=== PATIENT | female | born 1970 | race Caucasian/White ===

== ENCOUNTER → 2017-01-20 | Outpatient (CLI) | payer OTHER ==
--- NOTE | 2017-01-20 09:57 | Diagnostic Imaging Report ---
EXAMINATION: Ultrasound of the liver. INDICATION: Right upper quadrant pain. FINDINGS: The visualized portions of the pancreas appear unremarkable. The liver is slightly heterogenous with no focal lesion demonstrated. Hepatopetal flow in the portal vein is seen. The gallbladder has been removed. The CBD is 7 mm in caliber. The right kidney is 12 cm in length with no hydronephrosis or focal lesion. No fluid collection in the upper right abdomen is seen. IMPRESSION: No definite abnormality. Dictated by: Dictated on workstation # [id number]
== END ==
LOC: RAD 08:01
PROVIDERS: ATTEND Family Medicine
DX: R10.11 Right upper quadrant pain (principal)
CPT/HCPCS: 76705

== ENCOUNTER 2017-07-14 05:34 | Outpatient (CLI) | payer OTHER ==
[~2017-07-14] VITALS: Ht 172.7 cm; Wt 108.9 kg
[2017-07-14] MEDS ORDERED: PANT40TA2 PO (12:57)
== END 2017-07-14 12:59 ==
LOC: PREOP 05:34
PROVIDERS: ATTEND Surgery
DX: Z01.818 Encounter for other preprocedural examination (principal); R13.10 Dysphagia, unspecified

== ENCOUNTER 2017-07-21 08:26 | Day surgery (SDC) | payer OTHER ==
[~2017-07-21] VITALS: Ht 172.7 cm; Wt 108.9 kg
[~2017-07-21 08:26] MED LIST: PANT40TA2 PO
--- OUTSIDE RECORDS SUMMARY | 2017-07-21 08:30 | XMS REPORT | Continuity of Care Document ---
Author Author [facility] Organization [facility] Address Unknown Phone Unavailable Allergies Medications Problems Date Dx Coded Attending Type Code Diagnosis Diagnosed By 08/01/2014 ALEKSANDRA BOX Ot V76.12 11/15/2014 NEAL DAMON DO S Ot 278.00 11/15/2014 NEAL DAMON DO S Ot 626.9 07/23/2015 MIKY PATINO DO S Ot Z12.31 07/24/2015 MIKY PATINO DO S Ot Z12.31 08/01/2015 MIKY PATINO DO S Ot Z12.31 08/12/2015 MIKY PATINO DO S Ot R92.8 07/26/2016 ARISTEO CURRIE CONFERENCE SERVICES DIRECTOR Ot Z12.31 ENCNTR SCREEN MAMMOGRAM FOR MALIGNANT NE 07/26/2016 ARISTEO CURRIE APRN Ot Z12.31 ENCNTR SCREEN MAMMOGRAM FOR MALIGNANT NE 01/20/2017 MIKY PATINO DO S Ot R10.11 RIGHT UPPER QUADRANT PAIN 02/16/2017 MIKY PATINO DO S Ot R10.11 RIGHT UPPER QUADRANT PAIN Procedures Results Encounters ACCT No. Visit Date/Time Discharge Status Pt. Type Provider Facility Loc./Unit Complaint [id number] 07/14/2017 05:34:00 2016 23:59:59 CLS Outpatient JESSICA ARAMBULA, ALIX Peter [facility] PREOP EGD [id number] 01/20/2017 08:01:00 2016 23:59:59 CLS Outpatient MIKY PATINO DO [facility] RAD RUQ PAIN [id number] 07/23/2016 12:35:00 2015 23:59:59 CLS Outpatient ARISTEO CURRIE APRN [facility] RAD SCREENING [id number] 07/23/2015 13:27:00 2014 23:59:59 CLS Outpatient SUKUMAR NO MIKY S [facility] RAD [id number] 07/18/2015 14:36:00 2014 23:59:59 CLS Outpatient SUKUMAR NO MIKY S [facility] RAD [id number] 11/01/2014 13:35:00 2014 23:59:59 CLS Outpatient NELSON NO NEAL S [facility] RAD [id number] 07/12/2014 13:39:00 2013 23:59:59 CLS Outpatient ALEKSANDRA BOX [facility] RAD [id number] 05/04/2013 09:25:00 2012 23:59:59 CLS Outpatient [id number] 07/21/2017 09:30:00 PEN Preadxiao LOPEZ MD, ALIX Peter [facility] ENDO EPIGASTRIC PAIN
[2017-07-21] MEDS ORDERED: NS IV 500 ML 500 ML ONE (08:31)
[2017-07-21] MEDS ORDERED: HURRICAINE EXT TUBE (BENZOCAINE) XX PRN (08:45)
[2017-07-21 08:50] VITALS: BP 123/80
[2017-07-21] MEDS ORDERED: NS IV 500 ML 500 ML IV PRN (08:55)
[2017-07-21] MEDS ORDERED: MIDAZOLAM 2 MG/2 ML (VERSED) VIAL ONE ×4 (10:04→10:05)
[2017-07-21] MEDS ORDERED: fentaNYL INJECTION 100 MCG/2 ML AMP ONE (10:04)
[2017-07-21] MEDS ORDERED: HURRICAINE EXT TUBE (BENZOCAINE) ONE (10:05)
[2017-07-21] MEDS: fentaNYL INJECTION 100 MCG/2 ML AMP IVP PRN (10:49)
[2017-07-21] MEDS: MIDAZOLAM 2 MG/2 ML (VERSED) VIAL IVP PRN ×2 (10:50→10:58)
--- NOTE | 2017-07-21 10:50 | History & Physicial ---
History of Present Illness History of Present Illness Reason for visit/HPI to undergo an upper endoscopy to investigate 6 months history of epigastric pain. Previous cholecystectomy to address gallstones. Date of Admission Date Seen by Provider: Jul 21, 2017 Time Seen by Provider: 10:48 I consulted on this patient on 07/21/17 10:47 Attending Physician Alix Merida MD Admitting Physician Katrina Willett DO Consult Allergies and Home Medications Allergies Coded Allergies: Penicillins (Verified Allergy, Unknown, 07/14/17) Sulfa (Sulfonamide Antibiotics) (Verified Allergy, Unknown, 07/14/17) cefaclor (Verified Allergy, Unknown, 07/14/17) cephalexin (Verified Allergy, Unknown, 07/14/17) latex (Verified Allergy, Unknown, 07/14/17) Home Medications Pantoprazole Sodium 40 Mg Tablet.dr, 40 MG PO DAILY, (Reported) Past Cjjebbu-Ppsntj-Hkyvcg Hx Patient Social History Marrital Status: Employed/Student: employed Alcohol Use: Denies Use Recreational Drug Use: No Smoking Status: Never a Smoker Recent Foreign Travel: No Contact w/other who traveled: No Recent Hopitalizations: No Recent Infectious Disease Expo: No Seasonal Allergies Seasonal Allergies: No Surgeries Yes Gallbladder, Tubal Ligation Cardiovascular No Neurological No Reproductive System : No Genitourinary No Musculoskeletal No Endocrine History of Endocrine Disorders: No HEENT History of HEENT Disorders: No Cancer No Psychosocial History of Psychiatric Problem: No Constitutional: no symptoms reported EENTM: no symptoms reported Respiratory: no symptoms reported Cardiovascular: no symptoms reported Gastrointestinal: see HPI Genitourinary: no symptoms reported Musculoskeletal: no symptoms reported Skin: no symptoms reported Psychiatric/Neurological: No Symptoms Reported Physical Exam Vital Signs Vital Sign - Last 12Hours 07/21/17 08:50 Temp 98.4 Pulse 76 Resp 16 B/P (MAP) 123/80 Pulse Ox 97 O2 Delivery Room Air Capillary Refill : General Appearance: No Apparent Distress HEENT: Normal ENT Inspection Neck: Normal Inspection Respiratory: Lungs Clear Cardiovascular: Regular Rate, Rhythm Gastrointestinal: Non Tender, Soft Back: Normal Inspection Extremity: Normal Inspection Skin: Warm/Dry Assessment/Plan Assessment and Plan lady with epigastric pain. For upper endoscopy Problems: ALIX MERIDA MD Jul 21, 2017 10:50 am
--- NOTE | 2017-07-21 10:51 | Conscious Sedation/ASA ---
Conscious Sedation Pre-Proced Time Reviewed: 10:51 ASA Class: 2 Airway Mallampati Classification: ([place] appropriate class) I. II. III, IV Lungs Heart ASA score ASA 1: a normal healthy patient ASA 2: a patient with a mild systemic disease (mid diabetes, controlled hypertension, obesity ASA 3: a patient with a severe systemic disease that limits activity (angina , COPD, prior Myocardial infarction) ASA 4: a patient with an incapacitating disease that is a constant threat to life (CHF, renal failure) ASA 5: a moribund patient not expected to survive 24 hrs. (ruptured aneurysm) ASA 6: a declared brain patient whose organs are being harvested. For emergent operations, add the letter E after the classification Grade 1 Sedation Plan: Discussed options with patient/fam Note The patient is an appropriate candidate to undergo the planned procedure, sedation, and anesthesia. The patient immediately re-assessed prior to indication. ALIX LOPEZ MD Jul 21, 2017 10:51 am
--- NOTE | 2017-07-21 11:09 | Endo Procedure Record ---
Endo Procedure Report Date of Procedure Jul 21, 2017 Surgeon (s) ALIX LOPEZ MD Post Procedure/Op Diagnosis hiatal hernia with grade 2 esophagitis Multiple shallow antral erosions Procedure Performed EGD with antral biopsy for H. pylori Description of Procedure Anesthesia Type: Conscious Sedation Specimen(s) collected/removed antral mucosa for H. pylori Description of the Procedure Indication for procedure: This lady came in for an upper endoscopy to evaluate epigastric pain over the past 6 months. Informed consent was obtained after reviewing the procedure in detail. Description of the procedure: She was placed in left lateral decubitus position and her vital signs were monitored. Conscious sedation was achieved using Versed and fentanyl. The flexible gastroscope was introduced down the esophagus , past the stomach, into the proximal duodenum. Findings: Esophagus: A short hiatal hernia with grade 2 esophagitis. Stomach: A few, shallow erosions at the antrum. Biopsy for H. pylori was obtained Duodenum: Normal She tolerated the procedure well and was taken back to the nursing area in a stable condition. Impression: Epigastric pain. Grade 2 esophagitis and antral erosions. Helicobacter status pending. Copies To: MIKY PATINO XAVIER M MD Jul 21, 2017 11:09 am
--- NOTE | 2017-07-21 11:12 | Discharge Inst-Simple/Standard ---
Discharge Inst-Standard Discharge Medications New, Converted or Re-Newed RX: Other Patient Instructions/Follow Up Plan of Care/Instructions/FU: to increase Protonix to twice a day. Follow-up with her primary physician. To avoid nonsteroidals Activity as Tolerated: Yes Discharge Diet: No Restrictions ALIX LOPEZ MD Jul 21, 2017 11:12 am
[2017-07-21 11:35] VITALS: BP 107/62
[2017-07-21 12:05] VITALS: BP 119/76
[2017-07-21 12:10] VITALS: BP 119/76
== END 2017-07-21 12:10 | disposition home or self-care (01) ==
LOC: ENDO 08:26
PROVIDERS: ATTEND Surgery
DX: K20.9 Esophagitis, unspecified (principal); K44.9 Diaphragmatic hernia without obstruction or gangrene; K25.9 Gastric ulcer, unspecified as acute or chronic, without hemorrhage or perforation

== ENCOUNTER → 2017-11-25 | Outpatient (CLI) | payer OTHER ==
--- NOTE | 2017-11-25 16:20 | Diagnostic Imaging Report ---
INDICATION: Routine screening. COMPARISON: Prior study from 07/23/2016 and 07/18/2015. EXAMINATION: Bilateral digital screening mammogram with CAD. The current study was also evaluated with a Computer Aided Detection (CAD) system. FINDINGS: Both breasts are primarily involutional. The parenchymal pattern is stable. No dominant mass or malignant appearing microcalcifications are seen. There are benign calcifications, bilaterally. Axillae are unremarkable. IMPRESSION: No mammographic features suspicious for malignancy are identified. ACR BI-RADS Category 2: Benign findings. Result letter will be mailed to the patient. Note: At least 10% of breast cancer is not imaged by mammography. Dictated on workstation # [id number]
== END ==
LOC: RAD 14:00
PROVIDERS: ATTEND Family Medicine
DX: Z12.31 Encounter for screening mammogram for malignant neoplasm of breast (principal)
CPT/HCPCS: 77067

== ENCOUNTER → 2019-02-16 | Outpatient (CLI) | payer OTHER ==
--- NOTE | 2019-02-19 10:17 | Diagnostic Imaging Report ---
INDICATION: Routine screening. Comparison is made with prior mammogram from 11/25/2017 and 07/23/2016. 2-D and 3-D bilateral screening mammography was performed with a Computer Aided Detection (CAD) system. FINDINGS: Scattered fibroglandular densities are identified bilaterally. Scattered benign-appearing calcifications are identified bilaterally. Small circumscribed ovoid density is identified in the central and slightly lateral left breast approximately 6-7 cm from the nipple. This may represent a small cyst. This is in approximately 3 o'clock location. No other masses are seen. No malignant appearing microcalcifications are identified. IMPRESSION: Circumscribed ovoid density lateral left breast mid depth. Further evaluation with additional views and ultrasound is recommended. ACR BI-RADS Category 0: Incomplete. (Needs additional imaging evaluation). Result letter will be mailed to the patient. Note: At least 10% of breast cancer is not imaged by mammography. Dictated by: Dictated on workstation # [id number]
== END ==
LOC: RAD 14:41
PROVIDERS: ATTEND Family Medicine
DX: Z12.31 Encounter for screening mammogram for malignant neoplasm of breast (principal)
CPT/HCPCS: 77067

== ENCOUNTER → 2019-02-23 | Outpatient (CLI) | payer OTHER ==
--- NOTE | 2019-02-23 17:35 | Diagnostic Imaging Report ---
INDICATION: Left breast density. Patient presents for additional views. COMPARISON: Correlation is made with recent screening study from 02/16/19. EXAMINATION: Unilateral left 2D and 3D diagnostic mammography was performed including spot compression CC and ML as well as conventional 90 degree lateral views. FINDINGS: Additional views confirm presence of a fairly well circumscribed ovoid nodular density in the lower outer left breast, approximately 6 cm from the nipple. Further evaluation with ultrasound is recommended. No suspicious microcalcifications are seen. IMPRESSION: Persistent circumscribed density lower outer left breast at mid depth. Further evaluation with ultrasound is recommended and will be performed today. ACR BI-RADS Category 0: Incomplete. (Needs additional imaging evaluation). Result letter will be mailed to the patient. Note: At least 10% of breast cancer is not imaged by mammography. Dictated by: Dictated on workstation # [id number]
--- NOTE | 2019-02-23 17:41 | Diagnostic Imaging Report ---
INDICATION: Left breast density. Patient presents for further evaluation. COMPARISON: Correlation is made with diagnostic mammogram from earlier the same day and screening mammogram from 02/16/2019. EXAMINATION: Sonographic interrogation of the outer left breast was performed. FINDINGS: There is a tiny cyst at the 3:30 location of the left breast, 3 cm from the nipple. This demonstrates posterior acoustic enhancement. No internal vascularity is seen. This likely accounts for the density noted mammographically. IMPRESSION: Tiny cyst at the 3:30 location of the left breast corresponding with the mammographic abnormality. The patient may return to routine annual screening mammography. ACR BI-RADS Category 2: Benign findings. Result letter will be mailed to the patient. Note: At least 10% of breast cancer is not imaged by mammography. Dictated by: Dictated on workstation # [id number]
== END ==
LOC: RAD 13:14
PROVIDERS: ATTEND Family Medicine
DX: R92.2 Inconclusive mammogram (principal)
CPT/HCPCS: 76642

== ENCOUNTER 2019-09-24 05:33 | Outpatient (CLI) | payer OTHER ==
[~2019-09-24] VITALS: Ht 172 cm; Wt 118.0 kg
== END 2019-09-24 12:43 | disposition home or self-care (01) ==
LOC: PREOP 05:33
PROVIDERS: ATTEND Surgery
DX: Z01.818 Encounter for other preprocedural examination (principal)

== ENCOUNTER 2019-09-28 09:52 | Day surgery (SDC) | payer OTHER ==
--- NOTE | 2019-09-10 07:09 | HISTORY AND PHYSICAL ---
DATE OF SERVICE: 09/28/2019 ATTENDING PHYSICIAN: Dr. Willett. HISTORY OF PRESENT ILLNESS: The patient is a 48-year-old female who was referred over to us in need of a colonoscopy. The patient reports that she had not had one done before in the past. She denies any family history of any colon cancer as well as no blood in her stool. She also denies any diarrhea, constipation or any abdominal pain. PAST MEDICAL HISTORY: Peptic ulcer disease. PAST SURGICAL HISTORY: in 2000. No other with tubal ligation in 2001, laparoscopic cholecystectomy in 2005, EGD 2017. ALLERGIES: PENICILLIN, SULFA, CECLOR, KEFLEX, LATEX. MEDICATIONS: None. SOCIAL HISTORY: Previous for smoke 1 pack per day for 5 years, quit in 1993. Negative for alcohol. FAMILY HISTORY: Mother lung cancer and diabetes, DVT, hypertension. Maternal grandfather, lung cancer. Maternal grandmother, stroke, myocardial infarction, hypertension. VITAL SIGNS: Blood pressure is 132/70. Current weight is 260 pounds, 5 feet 8 inches. REVIEW OF SYSTEMS: Well-nourished female, in no acute distress. She is not experiencing any shortness of breath or difficulty breathing. No chest pain, palpitations, or diaphoresis. No nausea, vomiting or abdominal pain. No diarrhea or constipation. No red blood per rectum. No dark tarry stools. No fever or chills. No recent inadvertent weight loss. All other review of systems negative. PHYSICAL EXAMINATION: CHEST: Clear. Good breath sounds bilaterally. HEART: Regular, no murmurs. EXTREMITIES: No lower extremity edema. Negative Homans sign. HEENT: No scleral icterus. NECK: No cervical lymphadenopathy. ABDOMEN: Soft, nontender, nondistended. SKIN: Warm, dry and pink. NEUROLOGIC: Awake, alert and oriented x3. ASSESSMENT AND PLAN: A 48-year-old female who is in need of a screening colonoscopy. The risks and benefits of the procedure as well as the procedure and home care instructions were explained to the patient. The patient verbalized understanding of instructions and agrees to proceed as planned. At this time, we will proceed with scheduling the patient for a screening colonoscopy. Job ID: [id number] DocumentID: [id number] Dictated Date: 08/28/2019 09:08:40 Oceanography Professor Date: 08/28/2019 11:41:34 Dictated By: GELY ANDREWS APRN
[~2019-09-28] VITALS: Ht 172 cm; Wt 118.0 kg
[2019-09-28] VITALS (15 sets, daily range): BP systolic 115–149; BP diastolic 56–118
[2019-09-28] MEDS ORDERED: NS IV 500 ML 500 ML ONE (09:53)
[2019-09-28] MEDS ORDERED: NS IV 500 ML 500 ML IV PRN (10:02)
[2019-09-28] MEDS ORDERED: LIDOCAINE JELLY 2% 6 ML SYRINGE MM PRN (10:15)
[2019-09-28] MEDS ORDERED: fentaNYL INJECTION 100 MCG/2 ML AMP IVP ONE (10:15)
--- NOTE | 2019-09-28 10:32 | Conscious Sedation/ASA ---
Conscious Sedation Pre-Proced Time 10:30 ASA Score 2 For ASA 3 and 4: Consider anesthesia and medical clearance. Also, for patients with a history of failed moderate sedation consider anesthesia. Airway Lungs Heart ASA score ASA 1: a normal healthy patient ASA 2: a patient with a mild systemic disease (mid diabetes, controlled hypertension, obesity ASA 3: a patient with a severe systemic disease that limits activity (angina, COPD, prior Myocardial infarction) ASA 4: a patient with an incapacitating disease that is a constant threat to life (CHF, renal failure) ASA 5: a moribund patient not expected to survive 24 hrs. (ruptured aneurysm) ASA 6: a declared brain- patient whose organs are being harvested. For emergent operations, add the letter E after the classification Mallampati Classification Grade 3 Sedation Plan Analgesia, Amnesia, Plan communicated to team members, Discussed options with patient/fam, Discussed risks with patient/fam The patient is an appropriate candidate to undergo the planned procedure, sedation, and anesthesia. The patient immediately re-assessed prior to indication. CECIL MARSH MD Sep 28, 2019 10:32
--- NOTE | 2019-09-28 10:33 | Progress Note-Pre Operative ---
Pre-Operative Progress Note H&P Reviewed The H&P was reviewed, patient examined and no changes noted. Date Seen by Provider: Sep 28, 2019 Time Seen by Provider: 10:30 Date H&P Reviewed: Sep 28, 2019 Time H&P Reviewed: 10:30 Pre-Operative Diagnosis: screening colonoscopy CECIL MARSH MD Sep 28, 2019 10:33
--- NOTE | 2019-09-28 10:34 | Discharge Inst-Surgical ---
D/C Lap Instructions-SALMA Follow Up Activity as tolerated High Fiber Diet 25g or more per day Avoid Alcohol, Caffeine, Spicy [place] and Acid foods. Drink 64 fluid oz or more of fluids per day. Symptoms to Report: Fever over 101 degree F, Nausea/Vomiting If any problems/questions: Contact your physician or go to Emergency Room CECLI MARSH MD Sep 28, 2019 10:34
[2019-09-28] MEDS ORDERED: ONDANSETRON 4 MG/2 ML (SDV) Z0FRAN IVP PRN (10:45)
[2019-09-28] MEDS ORDERED: morphine INJ 10 MG/ML 1ML (SYR OR VIAL) IVP PRN ×2 (10:45)
[2019-09-28] MEDS ORDERED: HYDROcodone/APAP 5 MG/325 MG (LORTAB) TAB PO PRN (10:45)
[2019-09-28] MEDS ORDERED: ACETAMINOPHEN 325 MG TABLET PO PRN (10:45)
[2019-09-28] MEDS ORDERED: MIDAZOLAM 5 MG/5 ML (VERSED) VIAL ONE ×2 (11:20)
[2019-09-28] MEDS ORDERED: fentaNYL INJECTION 100 MCG/2 ML AMP ONE ×2 (11:20)
[2019-09-28] MEDS ORDERED: LIDOCAINE JELLY 2% 6 ML SYRINGE ONE (11:20)
[2019-09-28] MEDS: MIDAZOLAM 5 MG/5 ML (VERSED) VIAL IV PRN ×4 (11:50→12:00)
--- NOTE | 2019-09-28 12:38 | Progress Note-Post Operative ---
Post-Operative Progess Note Surgeon (s)/Engineering Faculty (s) Surgeon CECIL MARSH MD Engineering Faculty: none Pre-Operative Diagnosis screening colonoscopy Post-Operative Diagnosis mild chronic stage 2 ext and int hemorrhoids. Procedure & Operative Findings Date of Procedure 09/28/19 Procedure Performed/Findings Colonoscopy. Anesthesia Type cs Estimated Blood Loss Estimated blood loss (mL): minimal Specimens/Packing Specimens Removed none CECIL MARSH MD Sep 28, 2019 12:38
--- NOTE | 2019-09-28 19:14 | OPERATIVE REPORT ---
DATE OF SERVICE: 09/28/2019 ATTENDING PRIMARY CARE PHYSICIAN: Katrina Willett DO PREOPERATIVE DIAGNOSIS: Screening colonoscopy. POSTOPERATIVE DIAGNOSIS: Chronic stage II external and internal hemorrhoids. Remainder of the rectum and colon were normal. PROCEDURE: Colonoscopy. SURGEON: Cecil Marsh MD. ANESTHESIA: Conscious sedation. ESTIMATED BLOOD LOSS: Minimal. FINDINGS: Chronic stage II external and internal hemorrhoids. Remainder of the rectum and colon were normal. DISPOSITION: The patient tolerated the procedure well. INDICATIONS: The patient is a 49-year-old female referred over to us for screening colonoscopy. She has not had a colonoscopy up to this point in her life. She states for the most part she is doing well, does not report any major issues with diarrhea nor constipation as well as no red blood per rectum nor any dark tarry stools. She also does not report any family history of colon cancer. DESCRIPTION OF PROCEDURE: The patient was brought to the endoscopy suite, laid in the left lateral decubitus position. After adequate IV pain and stated medications and conscious sedation anesthesia, a digital rectal examination was performed, which revealed mild chronic stage II external and internal hemorrhoids. Normal sphincter tone was felt and there were no palpable masses. The endoscope was then advanced through the valves of [place]arn[place] of the rectum with no polyps or any neoplasms identified. The endoscope was then advanced through the sigmoid colon where no diverticulosis identified. The endoscope was then advanced to the remainder of the descending, transverse and ascending colon to the cecum. These segments were normal. There were no polyps or any neoplasms identified throughout the colon or rectum. The endoscope was then slowly withdrawn while taking a second look and suctioning of residual air with no additional findings. The patient tolerated the procedure well. We will recommend a high fiber diet with 25 grams of fiber daily as well as significant amounts of water to promote soft stools on a daily basis. She does not need another colonoscopy for another 10 years and she is asymptomatic. Job ID: [id number] DocumentID: [id number] Dictated Date: 09/28/2019 12:15:56 Winding Inspector And Tester Date: 09/28/2019 19:12:24 Dictated By: CECIL MARSH MD
== END 2019-09-28 13:25 | disposition home or self-care (01) ==
LOC: ENDO 09:52
PROVIDERS: ATTEND Surgery
DX: Z12.11 Encounter for screening for malignant neoplasm of colon (principal); K64.1 Second degree hemorrhoids; K27.9 Peptic ulcer, site unspecified, unspecified as acute or chronic, without hemorrhage or perforation; Z88.0 Allergy status to penicillin; Z88.1 Allergy status to other antibiotic agents; Z88.2 Allergy status to sulfonamides; Z87.891 Personal history of nicotine dependence
CPT/HCPCS: 84703

== ENCOUNTER → 2020-02-29 | Outpatient (CLI) | payer OTHER ==
--- NOTE | 2020-03-03 09:23 | Diagnostic Imaging Report ---
INDICATION: Routine screening. COMPARISON: 02/16/2019 and 11/25/2017. TECHNIQUE: 2D and 3D bilateral screening mammography was performed with CAD. FINDINGS: Scattered fibroglandular densities are identified bilaterally. The previously noted nodular density in the outer left breast is stable. This was shown to represent a cyst. No new mass is detected. There are benign calcifications. No malignant appearing microcalcifications are seen. The axillae are unremarkable. IMPRESSION: No mammographic features suspicious for malignancy are identified. ACR BI-RADS Category 2: Benign findings. Result letter will be mailed to the patient. Note: At least 10% of breast cancer is not imaged by mammography. Dictated by: Dictated on workstation # [id number]
== END ==
LOC: RAD 14:28
PROVIDERS: ATTEND Family Medicine
DX: Z12.31 Encounter for screening mammogram for malignant neoplasm of breast (principal)
CPT/HCPCS: 77063; 77067

== ENCOUNTER → 2021-04-17 | Outpatient (CLI) | payer OTHER ==
--- NOTE | 2021-04-17 16:20 | Diagnostic Imaging Report ---
INDICATION: Routine screening. COMPARISON is made with prior mammogram from 02/29/2020 and 02/16/2019. 2-D and 3-D bilateral screening mammography was performed with CAD. Scattered fibroglandular densities are identified bilaterally. Small cyst outer left breast is again noted. No new mass or malignant-appearing microcalcifications are seen. Axillae are unremarkable. IMPRESSION: BI-RADS Category 2. No mammographic features suspicious for malignancy are identified. ACR BI-RADS Category 2: Benign findings. Result letter will be mailed to the patient. Note: At least 10% of breast cancer is not imaged by mammography. Dictated by: Dictated on workstation # [id number]
== END ==
LOC: RAD 15:00
PROVIDERS: ATTEND Family Medicine
DX: Z12.31 Encounter for screening mammogram for malignant neoplasm of breast (principal)
CPT/HCPCS: 77063; 77067